=== PATIENT | female | born 1990 | race Two or more races ===

== ENCOUNTER 2022-09-29 16:52 | Emergency (ER) | payer OTHER, SELFPAY ==
--- NOTE | ~2022-09-29 | XR_ITS ---
EXAMINATION: XR WRIST, LEFT XR HAND, LEFT CLINICAL INFORMATION: Left hand/wrist pain after hitting laundry door COMPARISON: None available. TECHNIQUE: PA, lateral, and oblique views of the left wrist and PA, lateral, and oblique views of the left hand. Total of 3 images were obtained. FINDINGS: LEFT WRIST: The bones and soft tissues are normal. No fracture. Alignment is anatomic. Joint spaces are maintained. No erosions or soft tissue calcifications. LEFT HAND: The bones and soft tissues are normal. No fracture. Alignment is anatomic. Joint spaces are maintained. No erosions or soft tissue calcifications. XR/XR hand wrist LT IMPRESSION: No evidence of acute fracture or dislocation in the left hand and left wrist. Unremarkable radiographs.
[2022-09-29 17:56] VITALS: BP 112/59; PULSE 83; RESP 18; TEMP 36.6; O2SAT 98; BMI 23.9
--- NOTE | 2022-09-29 18:00 | ED.GENADULT ---
HPI - General Adult General Chief complaint: Extremity Injury, Upper <SUZIE Shields Last Filed: 10/01/22 13:09> Stated complaint: L arm swollen <SUZIE Shields Last Filed: 10/01/22 13:09> Time Seen by Provider: 09/29/22 22:03 <SUZIE Shields Last Filed: 10/01/22 13:09> Source: patient <SUZIE Samuel Last Filed: 09/29/22 22:57> Mode of arrival: ambulatory <SUZIE Samuel Last Filed: 09/29/22 22:57> Limitations: no limitations <SUZIE Samuel Last Filed: 09/29/22 22:57> History of Present Illness HPI narrative: 32-year-old female presents with left wrist pain status post falling clothing out of a hide washer, she says she may have also jammed her left wrist however unclear, she has been having pain since yesterday, pain is worse with movement better at rest. He reports intermittent tingling however no numbness. Denies fevers and chills. No blunt trauma. <SUZIE Samuel Last Filed: 09/29/22 22:57> Related Data Home medications: Previous Rx's Medication Instructions Recorded morphine 15 mg tablet,extended 15 mg PO Q12H #6 tabs 09/29/22 release <SUZIE Shields Last Filed: 10/01/22 13:09> Allergies/adverse reactions: Allergies Allergy/AdvReac Type Severity Reaction Status Date / Time metronidazole [From METROGEL] Allergy Unknown RASH Verified 09/29/22 18:00 naproxen [From NAPROSYN] Allergy Unknown TACHYCARDIA Verified 09/29/22 18:00 <SUZIE Shields Last Filed: 10/01/22 13:09> Review of Systems Review of Systems: Constitutional : No Weight loss, No Fever, No Chills, No Fatigue, No Malaise ENT/Mouth : No sore throat, No Rhinorrhea Eyes: No Eye Pain, No Swelling, No Redness Cardiovascular : No Chest Pain, No SOB, No Dyspnea on Exertion, No Orthopnea, No Edema, No Palpitations Respiratory : No Cough, No Sputum, No Wheezing Gastrointestinal : No Nausea, No Vomiting, No Diarrhea, No Constipation, No abdominal Pain, No Hematochezia, No Melena Genitourinary : No Dysuria, No Urinary Frequency, No Hematuria, Musculoskeletal : + joint pain, No Myalgias, + Joint Swelling Skin : No Skin Lesions, No rash Neuro : No Weakness, No Numbness, No Dizziness, No Headache Psych : No Anxiety/Panic, No Depression All other systems reviewed and are negative <SUZIE Samuel - Last Filed: 09/29/22 22:57> Yes all other systems are reviewed and are negative <SUZIE Samuel - Last Filed: 09/29/22 22:57> [facility] Past Medical History Attestation statement: The following information was validated with the patient. <SUZIE Samuel - Last Filed: 09/29/22 22:57> Source: old records reviewed and nursing notes reviewed <SUZIE Samuel - Last Filed: 09/29/22 22:57> Social History Social History: Social History Advance Directives: No Advance Directives Information Provided: No <SUZIE Shields - Last Filed: 10/01/22 13:09> Physical Exam ED Vital Signs: Vital Signs - 24 hr 09/29/22 17:56 Temperature 97.8 F Pulse Rate 83 Respiratory Rate 18 Blood Pressure 112/59 L Pulse Oximetry 98 Oxygen Delivery Method Room Air BMI result Body Mass Index 23.9 <SUZIE Shields - Last Filed: 10/01/22 13:09> Vital Signs - 24 hr 09/29/22 17:56 Temperature 97.8 F Pulse Rate 83 Respiratory Rate 18 Blood Pressure 112/59 L Pulse Oximetry 98 Oxygen Delivery Method Room Air BMI result Body Mass Index 23.9 vss <SUZIE Samuel - Last Filed: 09/29/22 22:57> Appearance: Alert.? Oriented X3.? No acute distress.? Head: Normocephalic, atraumatic, no step-offs or deformities Eyes: Pupils equal, round and reactive to light.? CVS: Normal heart rate and rhythm.? Pulses normal.? Respiratory: No respiratory distress.? Breath sounds normal.? Abdomen: Soft and nontender.? Skin: Skin warm and dry.? Normal skin color.? Normal skin turgor.? Extremities: No lower extremity edema.? No calf ttp. 5/5 strength to bilateral upper and lower extremities 2+ radial pulses equal bilateral, brisk capillary refill less than 2 seconds, no wrist drop. Patient has painful range of motion to left wrist however full range of motion. Full range of motion to right wrist. No evidence of distracting injuries, laxity, distortion. Back: No midline tenderness, no C-spine tenderness, full range of motion, no CVA tenderness bilaterally Neuro: Oriented X 3.? No motor deficit.? No sensory deficit. CN 2-12 intact <SUZIE Samuel - Last Filed: 09/29/22 22:57> Course Course Course Narrative: RME: left wrist pain since yesterday after hitting hand on front of laundry while trying to place clothes. patient motor, neuro, and vascular exam of extremity intact. postive for wrist tenderness. xray ordered <SUZIE Shields - Last Filed: 10/01/22 13:09> Reevaluation(s) Reevaluation #1: Patient placed in a volar wrist splint, morphine was given for pain. She will be discharged home on same. She reports severe pain, 10/10. Neurovascular status intact will give for orthopedic follow-up. Educated patient on diagnosis and treatment plan, answered all question, patient verbalizes understanding. At this time patient will be discharged home, advised to return with new or worsening symptoms. Educated on worrisome signs and symptoms and when to return. At this time I feel comfortable discharge home. <SUZIE Samuel - Last Filed: 09/29/22 22:57> Time: 22:56 <SUZIE Samuel - Last Filed: 09/29/22 22:57> Medications Administered Discontinued Medications Generic Name Dose Route Start Last Admin Trade Name Freq PRN Reason Stop Dose Admin Morphine Sulfate 15 mg 09/29/22 22:51 09/29/22 23:10 Morphine Sulfate Immed Release 15 Mg Tablet PO 09/29/22 22:52 15 mg ONCE ONE Administration <SUZIE Shields - Last Filed: 10/01/22 13:09> Medications Administered Discontinued Medications Generic Name Dose Route Start Last Admin Trade Name Omari PRN Reason Stop Dose Admin Morphine Sulfate 15 mg 09/29/22 22:51 09/29/22 23:10 Morphine Sulfate Immed Release 15 Mg Tablet PO 09/29/22 22:52 15 mg ONCE ONE Administration <SUZIE Samuel Last Filed: 09/29/22 22:57> Medical Decision Making Medical Decision Making [facility] Narrative: 2220 32-year-old female presents with left wrist pain x2 days after pulling clothes out of the washer. Physical exam No lower extremity edema.? No calf ttp. 5/5 strength to bilateral upper and lower extremities 2+ radial pulses equal bilateral, brisk capillary refill less than 2 seconds, no wrist drop. Patient has painful range of motion to left wrist however full range of motion. Full range of motion to right wrist. No evidence of distracting injuries, laxity, distortion. Likely sprain or strain. Unlikely fracture, dislocation. No signs of threatened limb neurovascular compromise. Plan imaging. Will give something for pain control. <SUZIE Samuel - Last Filed: 09/29/22 22:57> Differential Diagnosis Differential Diagnoses: The differential diagnosis associated with the presentation includes <SUZIE Samuel Last Filed: 09/29/22 22:57> Likely sprain or strain. Unlikely fracture, dislocation. No signs of threatened limb neurovascular compromise. <SUZIE Samuel - Last Filed: 09/29/22 22:57> Admission/Observation Not indicate <SUZIE Samuel - Last Filed: 09/29/22 22:57> Independent Interpretation I performed an independent interpretation of an: Plain X-Ray (XR/XR hand wrist LT IMPRESSION: No evidence of acute fracture or dislocation in the left hand and left wrist. Unremarkable radiographs.) <SUZIE Samuel Last Filed: 09/29/22 22:57> Radiology Impression Discussion of test interpretation with radiology: I have reviewed the radiologist's reading. <SUZIE Samuel Last Filed: 09/29/22 22:57> Prescription Management I considered prescription management with: Pain Medication <SUZIE Samuel Last Filed: 09/29/22 22:57> Core Measures AMI core measures followed: Yes <SUZIE Samuel - Last Filed: 09/29/22 22:57> Measure exclusions: not indicated <SUZIE Samuel - Last Filed: 09/29/22 22:57> Critical Care Time Critical Care Time Critical Care Time: No <SUZIE Samuel - Last Filed: 09/29/22 22:57> Discharge Plan Discharge Clinical Impression: Sprain and strain of wrist <SUZIE Shields - Last Filed: 10/01/22 13:09> Patient Disposition: Home, Self-Care <SUZIE Shields Last Filed: 10/01/22 13:09> Instructions: Sprain (ED), Wrist Sprain (ED) <SUZIE Shields - Last Filed: 10/01/22 13:09> Additional Instructions: Take your medications as prescribed. If you were prescribed antibiotics today, it is important that you take your medication to their entirety, do not skip any doses, do not finish them early. Follow-up with your primary care provider this week. Follow-up with orthopedics in one week Return to the emergency department with new or worsening symptoms. Such as fevers, chills, chest pain, shortness of breath, nausea, vomiting, dizziness, headache, vision changes, lethargy In case of emergency call 911 A narcotic has been sent to your pharmacy please take this as prescribed. Do not take more than the prescribed dose. Narcotic medications can cause addiction. Please do not mix them with alcohol. Do not take them while driving or operating machinery. Do not take them with any other narcotics. Do not share them with friends or family. They can cause constipation. Take them only for severe pain. <SUZIE Shields Last Filed: 10/01/22 13:09> Prescriptions: New morphine 15 mg tablet extended release 15 mg PO Q12H Qty: 6 0RF Rx Instructions: Partial Fill upon patient request. <SUZIE Shields Last Filed: 10/01/22 13:09> Referrals: [facility] [Provider Group] - 1 week <SUZIE Shields Last Filed: 10/01/22 13:09> Stand Alone Forms: Work/School Release <SUZIE Shields - Last Filed: 10/01/22 13:09> Interventions: ED Discharge Assessment Last Done: 09/29/22 23:17 <SUZIE Shields - Last Filed: 10/01/22 13:09> Discharge Date/Time: 09/29/22 23:17 <SUZIE Shields - Last Filed: 10/01/22 13:09>
[2022-09-29] MEDS: Morphine Sulfate Immed Release 15 MG TABLET PO (23:10)
[2022-09-29 23:11] VITALS: BP 113/71; PULSE 73; RESP 16; O2SAT 100
== END 2022-09-29 23:17 | disposition home or self-care (01) ==
PROVIDERS: Emergency Provider Internal Medicine
DX: S63.502A Unspecified sprain of left wrist, initial encounter (principal); M79.642 Pain in left hand; Y29.XXXA Contact with blunt object, undetermined intent, initial encounter; Y93.9 Activity, unspecified; Y92.009 Unspecified place in unspecified non-institutional (private) residence as the place of occurrence of the external cause; Y99.9 Unspecified external cause status
CPT/HCPCS: 29125; 73110; 73130; 99283

== ENCOUNTER 2023-05-09 11:29 | Emergency (ER) | payer OTHER, SELFPAY ==
[2023-05-09 11:45] VITALS: BP 124/77; PULSE 76; RESP 18; TEMP 36.7; O2SAT 97; BMI 27.9
--- NOTE | 2023-05-09 11:47 | ED.GENADULT ---
HPI - General Adult General Chief complaint: Abdominal Pain Stated complaint: abd pain Time Seen by Provider: 05/09/23 16:00 Source: patient Mode of arrival: ambulatory Limitations: no limitations History of Present Illness HPI narrative: 33 yo female with PMH of sinusitis on 2 days of doxy and prednisone since yesterday by PCP now with upper abdominal pain and nausea after taking medications no black or bloody stools has not had GERD or gastritis before. no Fevers. MD complaint: abd pain Onset (ago): day(s) (1) Location: abdomen Radiation: non-radiation Severity: mild Quality: aching Pain Consistency: intermittent Relieving factors: none Exacerbating factors: eating and medication Associated symptoms: denies other symptoms Treatments prior to arrival: none Related Data Previous Rx's Medication Instructions Recorded morphine 15 mg tablet,extended 15 mg PO Q12H #6 tabs 09/29/22 release famotidine 40 mg tablet (Pepcid) 40 mg PO DAILY #10 tabs 05/09/23 ondansetron 4 mg disintegrating 4 mg PO Q8H PRN nausea and 05/09/23 tablet vomiting #20 tabs Allergies Allergy/AdvReac Type Severity Reaction Status Date / Time metronidazole [From METROGEL] Allergy Unknown RASH Verified 05/09/23 11:45 naproxen [From NAPROSYN] Allergy Unknown TACHYCARDIA Verified 05/09/23 11:45 Review of Systems Review of Systems: Constitutional : No Weight loss, No Fever, No Chills ENT/Mouth : No sore throat, No Rhinorrhea Eyes: No Swelling, No Redness Cardiovascular : No Chest Pain, No SOB, NoEdema Respiratory : No Cough, No Sputum, No Wheezing Gastrointestinal : Positive Nausea, no Vomiting, no Diarrhea, positive abdominal Pain, No Hematochezia, No Melena Genitourinary : No Dysuria, No Urinary Frequency, No Hematuria, No Urgency Musculoskeletal : No joint pain, No Myalgias, No Joint Swelling Skin : No Skin Lesions, No rash Neuro : No Weakness, No Numbness, No Dizziness, No Headache Psych : No Anxiety/Panic, No Depression All other systems reviewed and are negative. [facility] Past Medical History Source: old records reviewed Medical History Sinusitis Social History Social History (Updated 05/09/23 @ 16:19 by Marietta Rust DO) Patient Tobacco Use Status: Never used Tobacco Physical Exam ED Vital Signs: Vital Signs - 24 hr 05/09/23 11:45 05/09/23 16:04 Temperature 98.1 F 98.3 F Pulse Rate 76 73 Respiratory Rate 18 16 Blood Pressure 124/77 109/68 Pulse Oximetry 97 98 Oxygen Delivery Method Room Air Room Air BMI result Body Mass Index 27.9 Appearance: Alert. Oriented X3. No acute distress. Eyes: Pupils equal, round and reactive to light. ENT: Pharynx normal. Neck: Normal inspection. Neck supple. CVS: Normal heart rate and rhythm. Pulses normal. Respiratory: No respiratory distress. Breath sounds normal. Abdomen: Soft and mild epigastric ttp no rebound Skin: Skin warm and dry. Normal skin color. Normal skin turgor. Extremities: No lower extremity edema. No calf ttp Neuro: Oriented X 3. No motor deficit. No sensory deficit. Course Course Course Narrative: RME- 33-year-old female presents for evaluation of left upper abdominal pain that is worse with eating. Plan for labs Medical Decision Making Medical Decision Making [facility] Narrative: 33 yo female no sig PMH just started on prednisone and doxy yesterday now with upper abdominal pain and LUQ pain after taking medications - no black or bloody stools, VS stable, no acute abdominal signs at this time suspect gastritis due to medications will start on pepcid and discussed better ways to take medications. Differential Diagnosis Differential Diagnoses: The differential diagnosis associated with the presentation includes GERD< gastritis , med reaction Admission/Observation Consideration of admission/observation: Escalation of care including admission/observation considered labs stable not toxic Lab Data [facility] Lab Attestation statement: I reviewed the patient's lab results. 05/09/23 14:22 05/09/23 14:22 Labs: Lab Results 05/09/23 Range/Units 14:22 WBC 11.5 H (4.8-10.8) X10*3/uL RBC 4.66 (4.20-5.50) X10*6/uL Hgb 12.5 (12.0-16.0) g/dl Hct 39.5 (37.0-47.0) % MCV 84.8 (80.0-98.0) fL MCH 26.8 L (27.0-33.0) pg MCHC 31.6 (31.0-35.0) g/dl RDW 16.7 H (11.0-16.0) % Plt Count 341 (160-400) X10*3/uL MPV 10.1 (9.4-12.3) fL Immature Gran % (Auto) 0.4 (0.0-0.4) % Neut % (Auto) 89.3 H (45-73) % Lymph % (Auto) 8.9 L (20-40) % [place] % (Auto) 1.3 L (2-11) % Eos % (Auto) 0.0 (0-4) % Baso % (Auto) 0.1 (0-2) % Lymph # (Auto) 1.0 L (1.2-4.9) X10*3/uL [place] # (Auto) 0.2 (0.1-1.2) X10*3/uL Eos # (Auto) 0.0 (0.0-0.4) X10*3/uL Baso # (Auto) 0.0 (0.0-0.2) X10*3/uL Abs Immat Gran (auto) 0.05 H (0.00-0.03) X10*3/uL Absolute Neuts (auto) 10.3 H (2.0-8.3) x10*3/uL Absolute Nucleated RBC 0.000 (0.0-0.012) X10*3/uL Nucleated RBC % (auto) 0.0 (0.0-0.2) /100WBC Sodium 140 (135-145) mmol/L Potassium 4.2 (3.3-5.1) mmol/L Chloride 108 (96-108) mmol/L Carbon Dioxide 24 (22-29) mmol/L Anion Gap 12 (12-20) BUN 16 (9-16) mg/dL Creatinine 0.69 (0.5-1.4) mg/dL Estim Creat Clear Calc 108.8 Estimated GFR > 60 Random Glucose 113 (60-115) mg/dL Calcium 9.8 (8.4-10.2) mg/dL Total Bilirubin 0.5 (0.0-1.0) mg/dL AST 19 (5-31) U/L ALT 15 (0-31) U/L Alkaline Phosphatase 109 (39-117) U/L Total Protein 7.9 (6.5-8.0) g/dL Albumin 4.1 (3.5-5.0) g/dL Lipase 17 (8-78) U/L Beta HCG, Quant < 2 mIU/mL External Record Review External record reviewed: Office record Prescription Management I considered prescription management with: Other Discharge Plan Discharge Clinical Impression: Gastritis Qualifiers: Gastritis type: unspecified gastritis Chronicity: acute Gastritis bleeding: without bleeding Qualified Code(s): K29.00 - Acute gastritis without bleeding Patient Disposition: Home, Self-Care Instructions: Gastritis (ED) Additional Instructions: tylenol is okay but do not take NSAIDs. take the doxycycline at breakfast and take prednisone at lunch then doxycycline at dinner - both with a meal and glass of water. take the new antacid at lunch as well. return for worsening pain, fevers, vomiting, black or bloody stools. Prescriptions: New famotidine [Pepcid] 40 mg tablet 40 mg PO DAILY Qty: 10 0RF ondansetron 4 mg tablet,disintegrating 4 mg PO Q8H PRN (Reason: nausea and vomiting) Qty: 20 0RF No Action morphine 15 mg tablet extended release 15 mg PO Q12H Qty: 6 0RF Rx Instructions: Partial Fill upon patient request.
[2023-05-09 14:27] LABS: MANUAL DIFF FLAG NO
[2023-05-09 14:28] LABS: Basophils Percent Auto 0.1 % (0-2); Hematocrit 39.5 % (37.0-47.0); Hemoglobin 12.5 g/dl (12.0-16.0); Imm Gran Abs Auto 0.05 X10*3/uL (0.00-0.03); Imm Gran Pct Auto 0.4 % (0.0-0.4); Lymphocytes Percent Auto 8.9 % (20-40); Mean Corpuscular HGB Conc 31.6 g/dl (31.0-35.0); Mean Corpuscular Hemoglobin 26.8 pg (27.0-33.0); Mean Corpuscular Volume 84.8 fL (80.0-98.0); Mean Platelet Volume 10.1 fL (9.4-12.3); Monocytes Absolute Auto 0.2 X10*3/uL (0.1-1.2); Monocytes Percent Auto 1.3 % (2-11); Neutrophils Absolute Auto 10.3 x10*3/uL (2.0-8.3); Neutrophils Percent Auto 89.3 % (45-73); Platelet Count 341 X10*3/uL (160-400); Red Blood Count 4.66 X10*6/uL (4.20-5.50); Red Cell Distribution Width 16.7 % (11.0-16.0); White Blood Count 11.5 X10*3/uL (4.8-10.8)
[2023-05-09 14:51] LABS: Alanine Aminotransferase 15 U/L (0-31); Albumin Level 4.1 g/dL (3.5-5.0); Alkaline Phosphatase 109 U/L (39-117); Anion Gap 12 (12-20); Aspartate Amino Transferase 19 U/L (5-31); Bilirubin Total 0.5 mg/dL (0.0-1.0); Blood Urea Nitrogen 16 mg/dL (9-16); Calcium 9.8 mg/dL (8.4-10.2); Carbon Dioxide 24 mmol/L (22-29); Chloride 108 mmol/L (96-108); Creatinine Clr Calc Pharmacy 108.8; Estimated Glomerular Filt Rate > 60; Glucose Random 113 mg/dL (60-115); Lipase 17 U/L (8-78); Potassium 4.2 mmol/L (3.3-5.1); Sodium 140 mmol/L (135-145); Total Protein 7.9 g/dL (6.5-8.0)
[2023-05-09 14:58] LABS: HCG Quantitative < 2 mIU/mL
[2023-05-09 16:04] VITALS: BP 109/68; PULSE 73; RESP 16; TEMP 36.8; O2SAT 98
[2023-05-09] MEDS: Ondansetron ODT 4 MG TAB.RAPDIS TRANSLINGU (16:25)
[2023-05-09] MEDS: Magnesium Hydrox/Alum Hydrox 30 ML ORAL.SUSP 15 ML PO (16:25)
[2023-05-09] MEDS: Famotidine 20 MG TABLET PO (16:25)
[2023-05-09] MEDS: Lidocaine HCl Viscous 2 % 15 ML SOLUTION MUCOUS MEM (16:26)
== END 2023-05-09 16:42 | disposition home or self-care (01) ==
PROVIDERS: Physician Assistant; Emergency Provider Emergency Medicine
DX: K29.00 Acute gastritis without bleeding (principal); R11.2 Nausea with vomiting, unspecified; R10.10 Upper abdominal pain, unspecified; Z79.899 Other long term (current) drug therapy
CPT/HCPCS: 36415; 80053; 83690; 84702; 85025; 99283; 99284

== ENCOUNTER 2023-10-28 23:03 | Emergency (ER) | payer OTHER, SELFPAY ==
--- NOTE | ~2023-10-28 | XR_ITS ---
EXAMINATION: XR THORACIC SPINE CLINICAL INFORMATION: Right back pain status-post fall. COMPARISON: None available. TECHNIQUE: Frontal and lateral views of the thoracic spine were obtained. FINDINGS: There is no fracture or bone destruction seen and the vertebral alignment is normal. There is no disc space narrowing. There is no abnormality of the paraspinal soft tissues. XR/XR thoracic spine 3V IMPRESSION: Unremarkable examination. EXAMINATION: XR LUMBOSACRAL SPINE CLINICAL INFORMATION: Right lower back pain status-post fall. COMPARISON: None available. TECHNIQUE: AP and lateral views of the lumbar spine and lateral view of the lumbosacral junction. FINDINGS: The vertebral bodies and posterior elements are normal. The disc spaces are preserved and the vertebral alignment is normal. The paraspinal soft tissues are normal. IMPRESSION: Unremarkable examination.
--- NOTE | ~2023-10-28 | XR_ITS ---
EXAMINATION: XR THORACIC SPINE CLINICAL INFORMATION: Right back pain status-post fall. COMPARISON: None available. TECHNIQUE: Frontal and lateral views of the thoracic spine were obtained. FINDINGS: There is no fracture or bone destruction seen and the vertebral alignment is normal. There is no disc space narrowing. There is no abnormality of the paraspinal soft tissues. XR/XR lumbar spine 2-3V IMPRESSION: Unremarkable examination. EXAMINATION: XR LUMBOSACRAL SPINE CLINICAL INFORMATION: Right lower back pain status-post fall. COMPARISON: None available. TECHNIQUE: AP and lateral views of the lumbar spine and lateral view of the lumbosacral junction. FINDINGS: The vertebral bodies and posterior elements are normal. The disc spaces are preserved and the vertebral alignment is normal. The paraspinal soft tissues are normal. IMPRESSION: Unremarkable examination.
[2023-10-28 23:12] VITALS: BP 117/70; PULSE 68; RESP 18; TEMP 36.7; O2SAT 98; BMI 24.5
[2023-10-29 04:11] VITALS: BP 110/73; PULSE 57; RESP 16; TEMP 36.4; O2SAT 99
[2023-10-29 06:17] VITALS: BP 116/74; PULSE 57; RESP 16; TEMP 36.7; O2SAT 100
--- NOTE | 2023-10-29 06:47 | ED_ITS ---
HPI - Back Pain/Injury General Chief Complaint: Back Pain/Injury Stated Complaint: back pain, possible UTI? Time Seen by Provider: 10/29/23 06:38 Source: patient, RN notes reviewed and old records reviewed Mode of arrival: ambulatory Limitations: no limitations History of Present Illness ED Provider: ERIKA THOMAS PA-C HPI Narrative: 33-year-old Belgian-speaking female presents to the ED today for evaluation of left sided back pain x4 days. She states that she was jumping on a trampoline 4 days ago when she slipped and hit the left side of her back on a metal bar. Since this time, reports significant pain to the left side of her back. Pain is exacerbated with movement/ ambulation. She denies noticing any bruising or discoloration over the back. Reports taking Tylenol at home with minimal relief. Last dose yesterday. Denies IV drug use. Denies hx of spinal surgery. Denies fever, chills, neck pain, bowel or bladder incontinence or retention, numbness/tingling/weakness in the lower extremities, dysuria, hematuria, saddle anesthesia. Related Data Previous Rx's ?Medication ?Instructions ?Recorded morphine 15 mg tablet,extended 15 mg PO Q12H #6 tabs 09/29/22 release famotidine 40 mg tablet (Pepcid) 40 mg PO DAILY #10 tabs 05/09/23 ondansetron 4 mg disintegrating 4 mg PO Q8H PRN nausea and 05/09/23 tablet vomiting #20 tabs cyclobenzaprine 5 mg tablet 5 mg PO Q8H PRN muscle spasm #10 10/29/23 tabs lidocaine 5 % topical patch 1 patch topical DAILY #15 ea 10/29/23 (Lidoderm) Allergies Allergy/AdvReac Type Severity Reaction Status Date / Time metronidazole [From METROGEL] Allergy Unknown RASH Verified 10/28/23 23:14 naproxen [From NAPROSYN] Allergy Unknown TACHYCARDIA Verified 10/28/23 23:14 Review of Systems Review of Systems: Constitutional: No fever, chills, fatigue, night sweats, weight changes ENT/Mouth: No ear pain, hearing loss, nasal congestion, sinus pain, rhinorrhea, sore throat Eyes: No eye pain, swelling, redness, vision changes, discharge Cardio: No chest pain, palpitations, MILLER, orthopnea, peripheral edema Pulm: No SOB, cough, sputum, wheezing, dyspnea, hemoptysis GI: No nausea, vomiting, hematemesis, abdominal pain, diarrhea, constipation, hematochezia, melena : No irregular bleeding, dysuria, frequency, urgency, hesitancy, hematuria, flank pain, urinary flow changes, urinary incontinence or retention MSK: +back pain, No neck pain, joint pain, myalgias Skin: No lesions, rashes Neuro: No weakness, numbness, paresthesias, LOC, dizziness, headache All other systems reviewed and are negative. [facility] Past Medical History Attestation statement: The following information was validated with the patient. Source: old records reviewed and nursing notes reviewed Medical History Sinusitis Social History Social History Patient Tobacco Use Status: Never used Tobacco Smoked in Last 30 Days: No Use of substances other than those prescribed or required for medical reasons: No Advance Directives: No Advance Directives Information Provided: No Patient : No Physical Exam Vital Signs: Vital Signs: Last Vital Signs Temp 97.2 F 10/29/23 09:33 Pulse 56 10/29/23 09:33 Resp 14 10/29/23 09:33 BP 135/77 10/29/23 09:33 Pulse Ox 100 10/29/23 09:33 O2 Del Method Room Air 10/29/23 08:31 BMI result Body Mass Index 24.5 Vital signs stable, afebrile Const: General: cooperative, healthy appearing, comfortable, no acute distress, alert, awake and Physically active Orientation/consciousness: patient oriented x3 HEENT: Head: Yes normal to inspection, Yes normocephalic and Yes atraumatic Eyes: General: appearance normal, both eyes and all related structures Pupils: Equal, round and reactive pupils present EOM: EOMs intact bilaterally Neck: Other: + no cervical midline spinous tenderness or step-off deformity. Neck: Yes normal visual inspection, Yes full ROM and Yes no meningeal signs Resp: Effort & Inspection: normal respiratory effort Auscultation: clear to auscultation bilaterally Cardio: Rate: regular rate Rhythm: regular rhythm GI: Inspection: Yes normal to inspection and No abdominal wall ecchymosis Palpation (GI): Soft to palpation and nontender : General: Yes no CVA tenderness Back/Spine/Pelvis: Other: No overlying ecchymoses. No midline spinous tenderness or step-off deformity. There is left-sided thoracic and lumbar paraspinal muscle tenderness to palpation with palpable spasm. No palpable deformity, mass, warmth, fluctuance. Back: no CVA tenderness Skin: General skin exam: no rashes or lesions noted Neuro: Other: Strength 5/5 intact throughout.? No saddle anesthesia.? Sensation intact to light touch.? Neurovascular intact distally.? General: patient oriented x3, gait normal and no meningeal signs Cranial nerves: Yes Equal, round and reactive pupils present Gait exam (Neuro): Normal gait present Course Course Course Narrative: 920-- xray of lumbar and thoracic spine do not demonstrate acute fracture or subluxation. on re-evaluation, patient reports improvement in pain with flexeril, lido patch and tylenol. she is ambulating with steady gait. Patient has remained stable throughout ED visit today. Discussed worrisome signs and symptoms and when to return to the ED. All questions answered at this time. Patient is agreeable with disposition and stable for discharge. Medications Administered Discontinued Medications Generic Name Dose Route Start Last Admin Trade Name Freq PRN Reason Stop Dose Admin Acetaminophen 975 mg 10/29/23 07:01 10/29/23 07:37 Acetaminophen 325 Mg Tablet PO 10/29/23 07:02 975 mg ONCE ONE Administration Cyclobenzaprine HCl 10 mg 10/29/23 07:01 10/29/23 07:37 Cyclobenzaprine Hcl 10 Mg Tablet PO 10/29/23 07:02 10 mg ONCE ONE Administration Lidocaine 1 patch 10/29/23 07:01 10/29/23 07:37 Lidocaine 4 % Patch Adh..Patch TRANSDERMA 10/29/23 07:02 1 patch ONCE ONE Administration Protocol Medical Decision Making Medical Decision Making MDM Narrative: 33-year-old Belgian-speaking female presents to the ED today for evaluation of left sided back pain x4 days. Vital signs stable, afebrile. She is nontoxic appearing in no acute distress. On exam, no midline spinous tenderness or step- off deformity. Tender to palpation over left thoracic and lumbar paraspinal muscles with palpable spasm. no palpable mass, deformity, warmth or fluctuance. ambulating with slow but steady gait. Sensation intact to light touch. Strength 5/5 intact throughout. Neurovascularly intact distally. Differential diagnosis includes MSK sprain/strain, fracture, subluxation, disc herniation, sciatica. Unlikely renal colic, UTI, nephrolithiasis, cord compression, cauda equina, Guillain-Woody, epidural abscess. Plan for imaging and pain control. Differential Diagnosis Differential Diagnoses: The differential diagnosis associated with the presentation includes as above Admission/Observation Not indicated. Independent Interpretation I performed an independent interpretation of an: Plain X-Ray Interpretation: X-ray lumbar spine without fracture, agree with radiologist's interpretation. X-ray thoracic spine without fracture, agree with radiologist's interpretation. Radiology Impression Discussion of test interpretation with radiology: I have reviewed the radiologist's reading. Radiologist Impression: EXAMINATION: XR LUMBOSACRAL SPINE CLINICAL INFORMATION: Right lower back pain status-post fall. COMPARISON: None available. TECHNIQUE: AP and lateral views of the lumbar spine and lateral view of the lumbosacral junction. FINDINGS: The vertebral bodies and posterior elements are normal. The disc spaces are preserved and the vertebral alignment is normal. The paraspinal soft tissues are normal. IMPRESSION: Unremarkable examination. Independent Historian Clinical information obtained from an independent historian. History obtained from or confirmed by: Spouse () External Record Review External record reviewed: Inpatient record Prescription Management I considered prescription management with: Other (Flexeril, lido patch) Social Determinants Patient?s care significantly limited by Social Determinants of Health including: Other Social Determinant of Health Critical Care Time Critical Care Time Critical Care Time: No Discharge Plan Discharge Clinical Impression: Strain of lumbar region Patient Disposition: Home, Self-Care Instructions: Muscle Strain (ED), Lower Back Exercises (ED) Additional Instructions: The xrays of your back do not show fracture. Your pain is likely musculoskeletal. Avoid bending, lifting, or twisting. Use ice several times per day for 20 minutes at a time for the next 48 hours and then change to heat. Flexeril is a muscle relaxer. Take this at night as it makes you drowsy. Do not drive, drink alcohol, or operate machinery while taking it. Lidoderm patches are numbing patches. Apply to painful areas. In addition you may take Tylenol at home. Follow up with your primary care provider as needed If your pain worsens, if you develop new numbness, tingling, weakness, loss of bowel or bladder function call 911 or return to the ER immediately for evaluation. Prescriptions: New cyclobenzaprine 5 mg tablet 5 mg PO Q8H PRN (Reason: muscle spasm) Qty: 10 0RF lidocaine [Lidoderm] 5 % adhesive patch,medicated 1 patch topical DAILY Qty: 15 0RF Rx Instructions: leave on most painful area for up to 12 hrs No Action famotidine [Pepcid] 40 mg tablet 40 mg PO DAILY Qty: 10 0RF ondansetron 4 mg tablet,disintegrating 4 mg PO Q8H PRN (Reason: nausea and vomiting) Qty: 20 0RF morphine 15 mg tablet extended release 15 mg PO Q12H Qty: 6 0RF Rx Instructions: Partial Fill upon patient request. Referrals: April Goldstein MD [Primary Care Provider] - Stand Alone Forms: Work/School Release Interventions: ED Discharge Assessment Last Done: 10/29/23 09:33 Discharge Date/Time: 10/29/23 09:33 Print Language: Belgian
[2023-10-29] MEDS: Lidocaine 4 % Patch ADH..PATCH 1 PATCH TRANSDERMA (07:37)
[2023-10-29] MEDS: Cyclobenzaprine HCl 10 MG TABLET PO (07:37)
[2023-10-29] MEDS: Acetaminophen 325 MG TABLET 975 MG PO (07:37)
[2023-10-29 08:31] VITALS: BP 135/77; PULSE 56; RESP 14; TEMP 36.2; O2SAT 100
[2023-10-29 09:33] VITALS: BP 135/77; PULSE 56; RESP 14; TEMP 36.2; O2SAT 100
== END 2023-10-29 09:33 | disposition home or self-care (01) ==
PROVIDERS: Emergency Provider Emergency Medicine; PCP Family Medicine
DX: S39.012A Strain of muscle, fascia and tendon of lower back, initial encounter (principal); W22.8XXA Striking against or struck by other objects, initial encounter; Y93.44 Activity, trampolining; Y92.39 Other specified sports and athletic area as the place of occurrence of the external cause; Y99.9 Unspecified external cause status
CPT/HCPCS: 72072; 72100; 99283; 99284